=== PATIENT | female | born 1990 | race Hispanic/Latino ===

== ENCOUNTER 2025-03-29 08:51 | Outpatient (CLI) | payer OTHER, SELFPAY ==
--- NOTE | ~2025-03-29 | CT_ITS ---
EXAMINATION: CT abdomen pelvis wo con, 03/29/2025 8:55 [employer] HISTORY: Umbilical hernia without obstruction or gangrene COMPARISON: No comparisons available. TECHNIQUE: CT scan of the abdomen and pelvis was performed without IV contrast. One or more of the following dose reduction techniques were used: automated exposure control, adjustment of the mA and/or kV according to patient size, use of iterative reconstruction technique. Unless otherwise stated, incidental findings do not require dedicated follow up imaging FINDINGS: CT abdomen: LUNG BASES: The lung bases are clear. The visualized portions of the heart and pericardium are unremarkable. LIVER: Within the right lobe liver anteriorly there is a large solid-appearing lesion incompletely evaluated measuring 7.9 x 7 cm. SPLEEN: Unremarkable, no splenomegaly. KIDNEYS: Right Kidney: Unremarkable. No calculi. No hydronephrosis. Left Kidney: Left kidney midpole 2 mm calculus, no hydronephrosis. ADRENAL GLANDS: Unremarkable. PANCREAS: Unremarkable. GALLBLADDER/BILIARY: Unremarkable. No biliary dilatation. STOMACH AND ESOPHAGUS: Visualized stomach and esophagus within normal limits. BOWEL/MESENTERY: Moderate fecal content, no colitis or diverticulitis. Appendix not identified. No stranding within the mesentery. No thickened or dilated loops of small bowel. ADENOPATHY/RETROPERITONEUM: No lymphadenopathy. AORTA/VASCULATURE: Normal caliber aorta. FREE FLUID OR FREE AIR: None. CT pelvis: SOLID ORGANS/REPRODUCTIVE: Unremarkable. BLADDER: Within normal limits. OSSEOUS STRUCTURES: No sclerotic or lytic lesions. OVERLYING SOFT TISSUES: There is diastases of the abdominal wall noted at the umbilicus. IMPRESSION: 1. There is diastases of the abdominal wall at the level of the umbilicus however there is no discrete umbilical hernia identified. Incidental findings above. There is a large solid liver lesion incompletely evaluated. Contrast- enhanced MRI is recommended Reviewed, dictated and finalized at location P. [employer] IMPRESSION: 1. There is diastases of the abdominal wall at the level of the umbilicus howev er there is no discrete umbilical hernia identified. Incidental findings above. There is a large solid liver lesion incompletely evaluated. Contrast-enhanced MRI is recommended
== END 2025-03-29 08:52 | disposition home or self-care (01) ==
LOC: MICIMG 08:52
PROVIDERS: PCP Surgery; Visit Provider Surgery
DX: K42.9 Umbilical hernia without obstruction or gangrene (principal)
CPT/HCPCS: 74176